=== PATIENT | female | born 1945 | race Caucasian/White ===

== ENCOUNTER 2021-11-01 11:49 | Day surgery (SDCO) | payer MEDICARE ==
[~2021-11-01] VITALS: Ht 154.9 cm; Wt 82.6 kg
[2021-11-01 13:44] LABS: BASOPHIL 1.1 % (0-2); EOSINOPHIL 6.4 % (0-7); HCT 37.3 % (37.0-47.0); HGB 11.3 g/dl (12.5-16.0); LYMPHOCYTE 19.9 % (15-48); MCH 28.5 pg (25.0-31.0); MCHC 30.3 g/dL (32.0-36.0); MCV 94.2 fL (78.0-100.0); MONOCYTE 6.8 % (0-12); MPV 10.4 fL (6.0-9.5); NRBC 0; PLT 385 K/uL (150-400); RBC 3.96 M/uL (4.20-5.40); RDW 13.8 % (11.5-14.0); WBC 8.3 K/uL (4.0-10.5)
[2021-11-01 13:46] LABS: BILIRUBIN NEGATIVE (NEGATIVE); BLOOD NEGATIVE Ery/uL (NEGATIVE); CLARITY CLEAR (CLEAR); COLOR YELLOW (YELLOW); GLUCOSE (U) NORMAL (NORMAL); LEUKOCYTES NEGATIVE Leu/uL (NEGATIVE); NITRITE NEGATIVE (NEGATIVE); PROTEIN NEGATIVE (NEGATIVE); UROBILINOGEN 0.2 mg/dL (0.2-1.0)
[2021-11-01 14:00] LABS: INR 1.07 (0.9-1.2); PROTHROMBIN TIME 13.6 SECONDS (11.9-13.9)
[2021-11-01 14:18] LABS: ALBUMIN 3.4 g/dL (3.4-5.0); BILIRUBIN - TOTAL 0.4 mg/dL (0.2-1.0); BUN/CREAT RATIO (CALC) 19.8 RATIO; CREATININE 1.16 mg/dL (0.51-0.95); GLOBULIN (CALCULATION) 3.5 g/dL; POTASSIUM 4.5 mmol/L (3.5-5.1); TOTAL PROTEIN 6.9 g/dL (6.4-8.2)
[2021-11-01] MEDS ORDERED: SEROQUEL 100MG100 MG PO (17:40)
[2021-11-01] MEDS ORDERED: CELEXA20 MG PO (17:40)
[2021-11-01] MEDS ORDERED: RESTORIL15 MG PO (17:41)
[2021-11-01] MEDS ORDERED: LITHIUM CARBON450 MG PO (17:42)
[2021-11-01] MEDS ORDERED: DICLOFENAC SODI75 MG PO (17:43)
[2021-11-01] MEDS ORDERED: FENOFIBRATE160 MG PO (17:44)
[2021-11-01] MEDS ORDERED: SINGULAIR10 MG PO (17:44)
[2021-11-01] MEDS ORDERED: SYNTHROID75 MCG PO (17:45)
[2021-11-01] MEDS ORDERED: INVEGA3 MG PO (17:46)
[2021-11-02 07:12] LABS: HCT 36.5 % (37.0-47.0); HGB 11.1 g/dl (12.5-16.0); MCH 28.8 pg (25.0-31.0); MCHC 30.4 g/dL (32.0-36.0); MCV 94.6 fL (78.0-100.0); MPV 11.4 fL (6.0-9.5); RBC 3.86 M/uL (4.20-5.40); RDW 13.9 % (11.5-14.0); WBC 7.7 K/uL (4.0-10.5)
[2021-11-02 07:28] LABS: IRON % SATURATION 13.8 %SAT (20-50)
[2021-11-02 07:52] LABS: BUN/CREAT RATIO (CALC) 20.7 RATIO; CREATININE 1.16 mg/dL (0.51-0.95); POTASSIUM 4.1 mmol/L (3.5-5.1)
[2021-11-03 06:37] LABS: HCT 37.8 % (37.0-47.0); HGB 11.5 g/dl (12.5-16.0); MCH 28.8 pg (25.0-31.0); MCHC 30.4 g/dL (32.0-36.0); MCV 94.7 fL (78.0-100.0); MPV 10.7 fL (6.0-9.5); RBC 3.99 M/uL (4.20-5.40); RDW 13.5 % (11.5-14.0); WBC 7.1 K/uL (4.0-10.5)
[2021-11-03 06:58] LABS: BUN/CREAT RATIO (CALC) 22.8 RATIO; CREATININE 1.14 mg/dL (0.51-0.95)
--- NOTE | 2021-11-03 13:07 | NUR ---
PT WANTS HOME HEALTH WITH PERLA DIAZ; PLEASE NOTIFY JULES AT [facility] [phone] ONCE SHE D/C TO HOME
--- NOTE | 2021-11-03 13:26 | NUR ---
PT STATES SHE IS GOING TO HER HOUSE AT [facility] [address] [facility] HER PHONE NUMBER IS [phone]; HER DTR CELL IS [phone]; I DID NOTIFY VIA EMAIL TO JULES AT [facility], WHERE PT WAS GOING THE ADDRESS AND PHONE NUMBERS; PLEASE NOTIFY JULES AT [facility] ONCE SHE IS D/C TO HOME [phone]
[2021-11-04 06:42] LABS: BUN/CREAT RATIO (CALC) 22.1 RATIO; CREATININE 1.22 mg/dL (0.51-0.95); POTASSIUM 4.2 mmol/L (3.5-5.1)
[2021-11-04] MEDS ORDERED: K-TAB ER10 MEQ PO (09:24)
[2021-11-04] MEDS ORDERED: LASIX40 MG PO (09:24)
[2021-11-04] MEDS ORDERED: ELIQUIS5 MG PO (09:24)
--- NOTE | 2021-11-04 12:57 | NUR ---
TOOK OUT IV AND OFF MONITOR. WENT OVER DC INSTRUCTIONS WITH PT SON AND DAUGHTER. ALL VERBALIZED UNDERSTANDING. DC'D TO HOME WITH OXYGEN AT 2L NC.
== END 2021-11-04 12:46 | disposition home or self-care (01) ==
LOC: FER 11:49 → FTCU 15:45
PROVIDERS: Allergy & Immunology Allergy; Emergency Medicine; ADMIT Family Medicine
DX: I13.0 Hypertensive heart and chronic kidney disease with heart failure and stage 1 through stage 4 chronic kidney disease, or unspecified chronic kidney disease (principal); N18.30 Chronic kidney disease, stage 3 unspecified; I50.9 Heart failure, unspecified; J96.01 Acute respiratory failure with hypoxia; I16.1 Hypertensive emergency; D64.9 Anemia, unspecified; R73.9 Hyperglycemia, unspecified; J45.909 Unspecified asthma, uncomplicated; Z20.822 Contact with and (suspected) exposure to COVID-19
CPT/HCPCS: 36415; 36600; 71046; 80048; 80053; 80178; 81003; 82553; 82607; 82803; 83036; 83540; 83550; 83880; 84443; 84484; 85025; 85379; 85610; 85730; 93005; 93970; 94010; 94640; 97116; 97161; 97165; 97535; G0378; J1940; U0002